=== PATIENT | male | born 1975 | race Caucasian/White ===

== ENCOUNTER 2022-01-19 12:01 | Emergency (ER) | payer OTHER, SELFPAY ==
[2022-01-19 12:37] VITALS: BP 134/91; PULSE 62; RESP 16; TEMP 36.7; O2SAT 96; BMI 28.7
--- NOTE | 2022-01-19 13:00 | CRLHL7_ITS ---
For Patients: As a result of the Century Cures Act, medical imaging exams and procedure reports are released immediately into your electronic medical record. You may view this report before your referring provider. If you have questions, please contact your health care provider. Indication: Fall Technique: Volumetric multidetector CT images of the cervical spine were obtained without the administration of IV contrast. Comparison: None available. Findings: The cervical vertebral body heights are grossly maintained with somewhat limited evaluation of the cervical spine due to noninclusion of the T1 vertebral body and/or thoracic inlet. There is otherwise straightening and trace reversal of the normal cervical lordosis without evidence of significant spondylolisthesis. There is no displaced fracture or dislocation. There is moderate degenerative disc disease with disc height loss and marginal osteophyte formation. There is moderate to severe facet arthrosis with osteophyte formation and loss of joint space. The paraspinous soft tissues are grossly within normal limits. Impression: Mildly limited exam due to noninclusion of the entire cervical spine. The T1 level is not within the field of view. The partially visualized cervical spine otherwise demonstrates moderate degenerative changes without acute osseous abnormality. Please note that all CT scans at this facility use dose modulation, iterative reconstruction, and/or weight-based dosing when appropriate to reduce radiation dose to as low as reasonably achievable. Dictated by Spencer Rios MD @ 01/19/2022 2:19:08 PM (Electronically Signed)
--- NOTE | 2022-01-19 13:00 | CRLHL7_ITS ---
For Patients: As a result of the Century Cures Act, medical imaging exams and procedure reports are released immediately into your electronic medical record. You may view this report before your referring provider. If you have questions, please contact your health care provider. Indication: Trauma Technique: Volumetric multidetector CT images of the chest were obtained after the administration of IV contrast. 112 cc Isovue 370 low osmolar intravenous contrast Comparison: None available Findings: The thoracic inlet and thyroid gland are unremarkable. The thoracic aorta is nonaneurysmal. There is no central filling defect to suggest pulmonary embolism. There is no mediastinal, hilar or axillary adenopathy. This is mild central bronchial thickening. There is no focal consolidation, effusion or pneumothorax. There is no evidence of pulmonary mass or suspicious pulmonary nodule. The partially visualized upper abdominal viscera are within normal limits. The thoracic vertebral body heights are grossly maintained with straightening of the normal thoracic kyphosis and mild dextroscoliotic deformity of the AP alignment. There is no significant spondylolisthesis or displaced fracture. Impression: No acute cardiopulmonary abnormality. No evidence of obvious thoracic traumatic change.. Please note that all CT scans at this facility use dose modulation, iterative reconstruction, and/or weight-based dosing when appropriate to reduce radiation dose to as low as reasonably achievable. Dictated by Spencer Rios MD @ 01/19/2022 2:15:35 PM (Electronically Signed)
--- NOTE | 2022-01-19 13:00 | CRLHL7_ITS ---
For Patients: As a result of the Century Cures Act, medical imaging exams and procedure reports are released immediately into your electronic medical record. You may view this report before your referring provider. If you have questions, please contact your health care provider. INDICATION: Fall. TECHNIQUE: CT head without contrast. COMPARISON: None. FINDINGS: CSF spaces: Within normal limits for age. Brain parenchyma and extra-axial spaces: The ricks-white differentiation is normal. No sign of mass, hemorrhage, or midline shift. No extra-axial fluid collection. Skull base and calvarium: The visualized paranasal sinuses and mastoid air cells demonstrate no acute or significant findings. The visualized orbits are grossly unremarkable. No skull fractures. IMPRESSION: Unremarkable noncontrast head CT. Please note that all CT scans at this facility use dose modulation, iterative reconstruction, and/or weight-based dosing when appropriate to reduce radiation dose to as low as reasonably achievable. Dictated by Ryan Hui MD @ 01/19/2022 2:11:02 PM (Electronically Signed)
--- NOTE | 2022-01-19 13:34 | ED_ITS ---
HPI - General Adult General Date Seen: 01/19/22 Chief complaint: Fall/Minor Trauma Stated complaint: Fell, hit head on concrete Time Seen by Provider: 01/19/22 12:34 Source: patient and family History of Present Illness HPI narrative: Patient is a 46-year-old male who says that he was out in the garage trying to fetch some [place] off of a shelf which was about 6 ft off of the ground. He says he had pulled himself up by doing a pull-up onto the shelf, when the shelf started to detach from the ceiling. 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 He hit his head in the process. He denies loss of consciousness. His came out right away and says that he was not unconscious at any time, there was no seizure activity. He does note a headache. He has not had any nausea or vomiting. He says he just feels a little out of it. He did not have any neck pain at that time although now he has developed some pain or discomfort on the sides of his neck. He does not have any focal neurologic complaints. He has an unusual sensation in his chest which he is not able to really verbalize to me. He stops short of saying that it is painful, but he notices a sensation in his chest particularly when he stretches his shoulders back. He does not have any thoracic back pain at all. He does not have any difficulty breathing. Overall, he just wants to make sure that everything is okay. He does not have any abdominal pain or low back symptoms at all. He does not take any blood thinners, general health is good. Does not smoke or drink. Related Data Allergies Allergy/AdvReac Type Severity Reaction Status Date / Time No Known Drug Allergies Allergy Verified 01/19/22 12:36 Review of Systems Status of ROS: Reports: 10 or more systems reviewed and unremarkable except as noted in History and below [facility] Social History Smoking Status: Never smoker Do you use any of these nicotine containing products: None Second hand tobacco smoke exposure: No How often do you have a drink containing alcohol: 2-4 times a month How many standard drinks containing alcohol do you have on a typical day: 3 or 4 How often do you have six or more drinks on one occasion: Less than monthly AUDIT-C Alcohol total score: 4 Non-prescribed substance use: denies use service: No Exam Narrative: Exam Narrative: Primary survey: Airway: Patent. Breathing: Nonlabored. Lungs clear. Circulation: Pulses intact. No external bleeding. Disability: GCS 15. Secondary survey: Vital signs reviewed In general, an alert, nontoxic Head: Normocephalic, atraumatic. Eyes: Pupils are equal reactive. Extraocular movements full. ENT: No facial trauma. Dentition intact. Neck: No midline cervical tenderness. No anterior neck trauma. Chest: No visible signs of chest trauma. No tenderness to palpation. Heart regular rate and rhythm. Lungs clear bilaterally. Abdomen: No visible signs of trauma. Soft, nondistended, nontender to palpation. Back: No visible signs of trauma. Nontender to palpation. Pelvis: Stable, nontender. Extremities: Atraumatic and nontender to palpation. Neurologic: Alert, conversant, moves all extremities to command. Skin: Warm and dry, no abrasions or lacerations. Const: Vital Signs, click to edit/add: Vital Signs - 24 hr 01/19/22 12:37 Temperature 98.1 F Pulse Rate [Pulse Oximeter] 62 Respiratory Rate 16 Blood Pressure [Ri ght Upper Arm] 134/91 H Pulse Oximetry 96 Oxygen Delivery Me thod Room Air Documenting provider has reviewed patient's vital signs: yes Course Course Hospital Course: Overall, patient's exam is reassuring. His vital signs are normal, neurologic exam is normal. It is difficult to know exactly how far he fell although if the shelf was at 6 ft off the ground, he probably fell at least 5 ft or so directly on to his back. Therefore, just from a mechanism standpoint I recommended that we do CT scans of his head, cervical spine and chest to be on the safe side. CT scan of the head by my review is negative for intracranial hemorrhage. I do not see any abnormalities on the chest CT as well. Final radiology reads were negative of the head, cervical spine and chest. He continues to have some tightness when he stretches his arms back from the front of his chest, otherwise he feels comfortable. Has not developed any significant pain or shortness of breath. I think it is reasonable at this time to treat for to some chest wall strain as well as closed head injury. Discussed reasons to return such as severe headache, vomiting, confusion, shortness of breath. He is comfortable with that. Ibuprofen or Tylenol as needed. Primary care follow-up for persistent symptoms. Vital Signs Vital signs: Initial Vital Signs Temperature 98.1 F 01/19/22 12:37 Temperature Source Temporal Artery Scan 01/19/22 12:37 Pulse Rate 62 01/19/22 12:37 Pulse Rhythm 01/19/22 12:37 Respiratory Rate 16 01/19/22 12:37 Blood Pressure 134/91 H 01/19/22 12:37 Blood Pressure Mean 105 01/19/22 12:37 Blood Pressure Position Sitting 01/19/22 12:37 Pulse Oximetry 96 01/19/22 12:37 Oxygen Delivery Method 01/19/22 12:37 Vital Signs Temperature 98.1 F 01/19/22 12:37 Pulse Rate 62 01/19/22 12:37 Respiratory Rate 16 01/19/22 12:37 Blood Pressure 134/91 H 01/19/22 12:37 Pulse Oximetry 96 01/19/22 12:37 Oxygen Delivery Method 01/19/22 12:37 Temperature 98.1 F 01/19/22 12:37 Pulse Rate 62 01/19/22 12:37 Respiratory Rate 16 01/19/22 12:37 Blood Pressure 134/91 H 01/19/22 12:37 Pulse Oximetry 96 01/19/22 12:37 Oxygen Delivery Method 01/19/22 12:37 Discharge Plan Discharge Clinical Impression: Closed head injury, Strain of chest wall Patient Disposition: Home, Self-Care Condition: Stable Instructions: Head Injury (ED), Chest Wall Pain (ED) Additional Instructions: Ibuprofen or Tylenol if needed. Return for severe headache, vomiting, confusion, shortness of breath or other worsening. Follow-up as needed for persistent symptoms. Follow Up/Referrals: Provider,Not a Local [Primary Care Provider] - Stand Alone Forms: Wire[employer] Info Instructions
== END 2022-01-19 14:44 | disposition home or self-care (01) ==
PROVIDERS: Emergency Provider Emergency Medicine
DX: S09.90XA Unspecified injury of head, initial encounter (principal); S29.011A Strain of muscle and tendon of front wall of thorax, initial encounter; S21.109A Unspecified open wound of unspecified front wall of thorax without penetration into thoracic cavity, initial encounter; W17.89XA Other fall from one level to another, initial encounter
CPT/HCPCS: 70450; 71260; 72125; 99284; Q9967

== ENCOUNTER 2024-05-27 06:15 | Day surgery (SDC) | payer BC, SELFPAY ==
[2024-05-27 06:30] VITALS: BP 124/77; PULSE 64; RESP 20; TEMP 36.4; O2SAT 95; BMI 30.6
[2024-05-27] MEDS: ETHYL CHLORIDE 1 APPLICATION 1 APPLIC TOPICAL (06:55)
[2024-05-27] MEDS: LIDOCAINE 1%-EPI 1:100,000 20 ML INFILTRATI (06:55)
[2024-05-27] MEDS: BUPIVACAINE 0.5% 30 ML INJECTION (06:55)
[2024-05-27 07:25] VITALS: BP 142/78; PULSE 66; RESP 16; O2SAT 96
[2024-05-27 07:30] VITALS: BP 145/87; PULSE 69; RESP 16; O2SAT 97
[2024-05-27 07:35] VITALS: BP 150/90; PULSE 69; RESP 16; O2SAT 98
--- NOTE | 2024-05-27 07:35 | PM.ORPRC ---
Procedure Note Date of procedure: 05/27/24 Procedure: PREOPERATIVE DIAGNOSIS: 1. Left carpal tunnel syndrome POSTOPERATIVE DIAGNOSIS: 1. Left carpal tunnel syndrome PROCEDURE: 1. Left open carpal tunnel release SURGEON: Jamil Moss MD. [employer] TECHNICIAN: Ab Donnelly PA-C ANESTHESIA: Local anesthetic (50:50 mixture of 1% lidocaine with epi and 0.5% marcaine plain) - 10ml total IMPLANTS: None EBL: 2 mL TOURNIQUET: None COMPLICATIONS: None evident INDICATIONS: The patient is a pleasant 48-year-old male who has experienced left hand numbess/tingling affecting the radial 3.5 digits for multiple months. It has progressively gotten worse. Nonoperative management has been tried and failed, and therefore surgery was recommended. Of note, he did sustain a traumatic laceration across the volar aspect of his left wrist from a softball injury when his wrist encountered a raw edge of the tendon roof over the dugout. This was a remote injury that did have multiple tendon lacerations and has left him with numbness over his left radial thumb from the base approaching the tip. This is different than his finger tip numbness that occurs in the radial 3.5 digits. DESCRIPTION OF PROCEDURE: Following a thorough discussion of risks, benefits, and alternatives consent was obtained and the operative extremity was marked. The patient was brought to the operating room and placed supine on the operating table. Local anesthesia induction was undertaken in preop holding. No antibiotics were administered as this was planned to be a local case only. Proper time-out was performed identifying proper patient, site, and procedure. The operative extremity was prepped and draped in the appropriate sterile fashion using ChloraPrep. An incision was made in line with the radial border of the ring finger beginning 1 cm distal to the distal wrist crease and progressing for another 2.5cm distal. Caution was taken to stay proximal to Daly's cardinal line. Sharp incision through the skin, subcutaneous tissue, and palmar fascia was performed. The thenar musculature was bluntly elevated off the transverse carpal ligament. The ligament was directly visualized, and divided sharply with a 15 blade. This was released from its most proximal to the most distal extent. Metzenbaum scissor was also utilized to release the fascia extension proximally. We confirmed complete release of the transverse carpal ligament. Closure was performed with 4-O nylon in interrupted fashion. Soft dressings were applied, and the patient was transferred to the recovery room in stable condition. PLAN: 1. Encourage elevation of the operative extremity. 2. Range of motion of the fingers and hand/wrist as tolerated. 3. Ibuprofen/acetaminophen and/or oxycodone as needed for pain control. 4. Follow up with PA visit or nurse visit in 12-16 days for wound check and suture removal.
[2024-05-27 07:40] VITALS: BP 147/79; PULSE 72; RESP 16; O2SAT 98
[2024-05-27 07:48] VITALS: BP 135/84; PULSE 66; RESP 14; TEMP 36.9; O2SAT 98
== END 2024-05-27 07:53 | disposition home or self-care (01) ==
PROVIDERS: Visit Provider Orthopaedic Surgery Sports Medicine
PROC: (CPT 64721; principal; 2024-05-27 07:15)
DX: G56.02 Carpal tunnel syndrome, left upper limb (principal)
CPT/HCPCS: 64721; J0665